=== PATIENT | female | born 1990 | race American Indian/Alaskan Native ===

== ENCOUNTER 2019-06-23 14:32 | Emergency (ER) | payer OTHER ==
[2019-06-23 14:38] VITALS: BP 147/74
--- NOTE | 2019-06-23 14:56 | Emergency Department Report ---
Chief Complaint: Medical Clearance Stated Complaint: MEDICATION REFILL Time Seen by Provider: 06/23/19 14:37 - HPI History of Present Illness: Patient is a 29-year-old [place] female who is here for medication refill. Patient states that she is out of her Risperdal 2 mg. She is not from [place] recently moved here and does not have primary care. Patient is not having any homicidal suicidal ideations or hallucinations. - ROS Review of Systems: All of the systems are reviewed and are negative - Exam Vital Signs: Vital Signs 06/23/19 14:37 Temperature 98.3 F Pulse Rate 102 H Respiratory 18 Rate Blood Pressure 147/74 O2 Sat by Pulse 100 Oximetry Physical Exam: Patient is alert and oriented 3 in no acute distress. MSE screening note: Focused history and physical exam performed. Due to findings the following was ordered: ED Medical Decision Making - Medical Decision Making Patient has a non-medical emergency at this time. Did tell the patient there are community resources that are much more cost effective to get medication refills. These are being given. She's been given a brochure for [facility] as well as Hospital. Patient discharged. ED Disposition for MSE Clinical Impression: Encounter for medication refill Disposition: Z-07 MED SCREENING EXAM-LEFT Is pt being admited?: No Does the pt Need Aspirin: No Condition: Stable Time of Disposition: 14:56
== END 2019-06-23 15:02 | disposition left against medical advice (07) ==
LOC: ED 14:32
DX: F31.9 Bipolar disorder, unspecified (principal); Z76.0 Encounter for issue of repeat prescription
CPT/HCPCS: 99281